=== PATIENT | female | born 1940 ===

== ENCOUNTER 2019-11-21 07:30 | Inpatient (IN) ==
[2020-05-28] MEDS ORDERED: Sodium Citrate/Citric Acid LIQ 15 ML UDC PO ONE (06:00)
[2020-05-28] MEDS ORDERED: Buffered Lidocaine 1% SYRIN 1 ml INTRADERM ONE (06:00)
[2020-05-28] MEDS ORDERED: Lactated Ringers 1000 ml BAG 1,000 ML IV SCH (06:00)
[2020-05-28] MEDS ORDERED: Midazolam 5 mg/5 ml VIAL 1 mg/ml 5 ml VIAL (5 mg) ONE (06:30)
[2020-05-28] MEDS ORDERED: Rocuronium 50 mg VIAL 10 mg/ml 5 ml VIAL (50 mg) ONE (06:30)
[2020-05-28] MEDS ORDERED: Phenylephrine 40 mcg/mL 10mL (400mcg) SYRINGE ONE (06:31)
[2020-05-28] MEDS ORDERED: EPHEDrine (Pressors) 50 MG/ML VIAL ONE (06:32)
[2020-05-28] MEDS ORDERED: Sterile Water for Inj 0 ML ONE (06:32)
[2020-05-28] MEDS ORDERED: Bupivacaine 0.5% SDV PF 30ML VIAL ONE (06:33)
[2020-05-28] MEDS ORDERED: Phenylephrine IV 10 MG/ML 1 ml VIAL ONE (06:33)
[2020-05-28] MEDS ORDERED: Clindamycin 900 MG/D5W BAG 900 MG/50 ML BAG IVPB ONE (06:48)
[2020-05-28] MEDS ORDERED: Sodium Citrate/Citric Acid LIQ 15 ML UDC ONE (06:48)
[2020-05-28] MEDS ORDERED: Lidocaine 1% MPF 5 ML VIAL ONE (06:56)
[2020-05-28] MEDS ORDERED: ROPIVACAINE 5 MG/ML 30 ML BTL (0.5%) ONE ×2 (06:56→07:38)
[2020-05-28] MEDS ORDERED: Dexamethasone IV 4 MG/ML VIAL 1 ml VIAL ONE (07:02)
[2020-05-28] MEDS ORDERED: Naloxone 0.4 mg VIAL 0.4 mg/ml 1 ml VIAL IV PRN (09:22)
[2020-05-28] MEDS ORDERED: fentaNYL 100 mcg/2 ml 50 MCG/ML VIAL IV PRN (09:22)
[2020-05-28] MEDS ORDERED: HYDROmorphone 1 MG/1 ML SYRINGE IV PRN (09:22)
[2020-05-28] MEDS ORDERED: Ondansetron 4 mg VIAL 2 MG/ML 2 ml VIAL IV PRN ×2 (09:22→10:34)
[2020-05-28] MEDS ORDERED: oxyCODONE/Acetamin 5/325 mg TAB PO PRN (10:34)
[2020-05-28] MEDS ORDERED: Morphine 2 MG/ML SYRINGE IV PRN (10:34)
[2020-05-28] MEDS ORDERED: Magnesium Hydroxide LIQ 30 ML UDC PO PRN (10:34)
[2020-05-28] MEDS ORDERED: diPHENhydraMINE IV 50 MG/ML 1 ml VIAL (BENADRYL) IV PRN (10:34)
[2020-05-28] MEDS ORDERED: Ondansetron ODT 4 mg TAB 4 MG TAB PO PRN (10:34)
[2020-05-28] MEDS ORDERED: Lactulose 30 ml UDC PO PRN (10:34)
[2020-05-28] MEDS ORDERED: diPHENhydraMINE 25 mg TAB PO PRN (10:34)
[2020-05-28] MEDS ORDERED: Clindamycin 600 MG/D5W BAG 600 MG/50 ML BAG IV SCH (11:00)
[2020-05-28] MEDS: Lactated Ringers 1000 ml BAG 1,000 ML IV SCH ×2 (13:00→23:21)
[2020-05-28] MEDS: Clindamycin 600 MG/D5W BAG 600 MG/50 ML BAG IV SCH (16:29)
[2020-05-28] MEDS: Magnesium Hydroxide LIQ 30 ML UDC PO SCH (23:18)
[2020-05-29] MEDS: Clindamycin 600 MG/D5W BAG 600 MG/50 ML BAG IV SCH ×2 (00:08→08:06)
[2020-05-29 06:47] LABS: Hematocrit 31 % (35-47); Hemoglobin 10.5 g/dL (12.0-16.0); Mean Platelet Volume 8.8 fL (7.4-10.4); Platelet Count 184 10^3/uL (150-450)
[2020-05-29 07:17] LABS: Calcium 8.5 mg/dL (8.6-10.3); EGFR African American 76.4 (>60); EGFR Non-African American 63.1 (>60); Potassium 4.2 mmol/L (3.5-5.0)
[2020-05-29] MEDS: Magnesium Hydroxide LIQ 30 ML UDC PO SCH ×2 (08:08→20:40)
[2020-05-29] MEDS: Vitamin THERAPEUTIC TAB PO SCH (08:12)
[2020-05-30 06:08] LABS: Hematocrit 29 % (35-47); Hemoglobin 9.9 g/dL (12.0-16.0); Mean Platelet Volume 8.8 fL (7.4-10.4); Platelet Count 182 10^3/uL (150-450)
[2020-05-30] MEDS: Vitamin THERAPEUTIC TAB PO SCH (07:40)
[2020-05-30 07:41] VITALS: BP 142/64
[2020-05-30] MEDS: Magnesium Hydroxide LIQ 30 ML UDC PO SCH (07:42)
== END 2020-05-30 09:40 | DRG 470 ==
LOC: AA 05-28 06:11 → INTOOBSV 05-28 06:11 → SSU 05-28 10:34
PROVIDERS: ADMIT Orthopaedic Surgery Adult Reconstructive Orthopaedic Surgery; ATTEND Orthopaedic Surgery Adult Reconstructive Orthopaedic Surgery